=== PATIENT | male | born 1940 | race Caucasian/White ===

== ENCOUNTER 2016-10-01 07:17 | Day surgery (SDC) | payer MEDICARE ==
[~2016-10-01] VITALS: Ht 182.9 cm; Wt 100.8 kg
--- NOTE | 2016-10-02 07:41 | OR ---
ADMIT: 10/01/2016 RM/LOC: [facility] MR#: [id number] [address] [id number] [address]ANK[address] ASKEW [address] [place] [address] Operative/Delivery Room Report SEX: M AGE: 76 : 1940 SURGERY DATE: 10/01/2016 SURGEON: Brandon Ryder MD PROCEDURE: Screening colonoscopy. PREOPERATIVE DIAGNOSIS: Abnormal PET scan. POSTOPERATIVE DIAGNOSIS: Diverticulosis. PROCEDURE IN DETAIL: The patient brought to the procedure room, placed in left lateral decubitus position. Informed consent had been obtained preoperatively. The risks and benefits including, but not limited to, perforation, sedation, bleeding were discussed with the patient and agreed upon. All questions were answered, alternatives discussed, the patient agreed. Monitored anesthesia care was provided by Ken Lo CRNA with propofol. Anal inspection, digital examination revealed no abnormalities or obstructing masses. Prostate was not enlarged. No nodules were palpated. The Olympus videoendoscope, model CF-H180AL was inserted through the rectum and advanced to cecum without difficulty. The appendiceal orifice and ileocecal valve were identified. The scope was slowly withdrawn through a normal cecum, ascending, transverse, descending, and sigmoid colon. There were scattered, wide-mouthed diverticula throughout the colon. Rectum appeared normal. Scope was retroflexed. The anal verge appeared normal. The patient tolerated the procedure well. No complications were expected. There was no blood loss during the procedure. He will call me if he has any postoperative problems. Recommend he have repeat colonoscopy in 10 years unless signs or symptoms develop in the interval. Brandon Ryder MD/ yari JOB #: [id number] CC: Brandon Ryder, Attending Physician Jose R Danielson, Family Physician Jose R Danielson MD
== END 2016-10-01 11:32 | disposition home or self-care (01) ==
LOC: SSS 07:17
PROC: 0DJD8ZZ Inspection of Lower Intestinal Tract, Via Natural or Artificial Opening Endoscopic (ICD-10-PCS; principal; 2016-10-01)
DX: Z12.11 Encounter for screening for malignant neoplasm of colon (principal); K57.30 Diverticulosis of large intestine without perforation or abscess without bleeding; E11.9 Type 2 diabetes mellitus without complications; Z98.890 Other specified postprocedural states

== ENCOUNTER → 2016-10-20 | Outpatient (CLI) | payer MEDICARE | END | disposition home or self-care (01) | LOC: RAD.S 12:36 | DX: I82.403 Acute embolism and thrombosis of unspecified deep veins of lower extremity, bilateral (principal); R91.1 Solitary pulmonary nodule ==